=== PATIENT | male | born 2000 | race Caucasian/White ===

== ENCOUNTER 2024-11-19 15:12 | Emergency (ER) | payer SELFPAY | END 2024-11-19 16:46 | disposition home or self-care (01) | LOC: JD.ED 15:12 | DX: G56.02 Carpal tunnel syndrome, left upper limb (principal); G62.9 Polyneuropathy, unspecified; F17.200 Nicotine dependence, unspecified, uncomplicated | CPT/HCPCS: 99283; 99284 ==